=== PATIENT | male | born 1985 | race Caucasian/White ===

== ENCOUNTER 2019-07-25 05:35 | Emergency (ER) | payer OTHER ==
[~2019-07-25] VITALS: Ht 172.7 cm; Wt 72.6 kg
[2019-07-25 05:41] VITALS: BP 132/78
[2019-07-25] MEDS: KETOROLAC 60 MG/2 ML VIAL IM ONE (06:07)
[2019-07-25 06:10] VITALS: BP 132/78
== END 2019-07-25 06:10 | disposition home or self-care (01) ==
LOC: MED 05:35
DX: H92.03 Otalgia, bilateral (principal); F17.200 Nicotine dependence, unspecified, uncomplicated
CPT/HCPCS: 96372; 99283; J1885

== ENCOUNTER 2019-07-25 13:36 | Emergency (ER) | payer OTHER ==
[~2019-07-25] VITALS: Ht 165.1 cm; Wt 70.8 kg
[2019-07-25 13:43] VITALS: BP 123/86
[2019-07-25] MEDS: KETOROLAC 30 MG/ML VIAL IM ONE (14:16)
[2019-07-25 14:24] VITALS: BP 123/86
== END 2019-07-25 14:26 | disposition home or self-care (01) ==
LOC: MED 13:36
DX: H92.03 Otalgia, bilateral (principal); B34.9 Viral infection, unspecified
CPT/HCPCS: 96372; 99283; J1885

== ENCOUNTER 2019-07-26 08:22 | Emergency (ER) | payer OTHER ==
[2019-07-25 14:24] VITALS: BP_SYST 123
[~2019-07-26] VITALS: Ht 170.2 cm; Wt 74.8 kg
--- NOTE | 2019-07-26 08:22 | NUR ---
Patient BIBA BLS, transferred to bed 11. RN evaluating patient at bedside.
[2019-07-26 08:25] VITALS: BP 127/70
--- NOTE | 2019-07-26 08:28 | NUR ---
Note coletteemir in EDM - 07/26/19 at 0838 by MILENA Patient does not wish to proceed with medical care recommended by Dr Cordero. Patient given information related to possible complications, up to and including , which could occur as a result of leaving hospital at this time. Patient verbalizes understanding of risks involved leaving against medical advice. Patient has signed AMA form.
--- NOTE | 2019-07-26 08:30 | NUR ---
PATIENT LWBS Addendum: 07/26/19 at 0835 by CONOR WAS UNABLE TO PERFORM PHYSICAL ASSESSMENT ON PT BEFORE HE LEFT.
== END 2019-07-26 08:30 | disposition left against medical advice (07) ==
LOC: MED 08:22
DX: F15.90 Other stimulant use, unspecified, uncomplicated (principal); H92.01 Otalgia, right ear; Z53.21 Procedure and treatment not carried out due to patient leaving prior to being seen by health care provider